=== PATIENT | female | born 1940 | race Caucasian/White ===

== ENCOUNTER 2021-01-19 11:15 | Outpatient (CLI) | payer BC, SELFPAY ==
--- NOTE | ~2021-01-19 | XR_ITS ---
XR elbow LT min 3V DATE: 01/19/2021 11:50 INDICATION: Left elbow pain TECHNIQUE: 4 views COMPARISON: None FINDINGS: There is elevation of the anterior and posterior fat pads consistent with elbow joint effus ion. No fracture, dislocation, periosteal reaction or bone destruction is evident. IMPRESSION: Elbow joint effusion; no fracture or dislocation detected Reviewed, dictated and finalized at location B. [employer]
--- NOTE | ~2021-01-19 | XR_ITS ---
XR wrist LT min 3V DATE: 01/19/2021 11:50 INDICATION: Acute onset of left wrist pain TECHNIQUE: 4 views COMPARISON: None FINDINGS: Mild chondrocalcinosis of the triangular cartilage. Diffuse osteopenia. Mild osteoarthritic change at the first carpometacarpal joint. Mild widening of the scapholunate joint. No fracture, dislocation, periosteal reaction or bone destruction. IMPRESSION: Osteopenia Mild osteoarthritis Reviewed, dictated and finalized at location B. EY MANAGER
== END 2021-01-19 11:16 | disposition home or self-care (01) ==
PROVIDERS: PCP Family Medicine; Visit Provider Family Medicine
DX: M85.832 Other specified disorders of bone density and structure, left forearm (principal); M25.422 Effusion, left elbow
CPT/HCPCS: 73080; 73110

== ENCOUNTER 2021-02-17 10:38 | Emergency (ER) | payer BC, SELFPAY ==
--- NOTE | ~2021-02-17 | XR_ITS ---
EXAMINATION: XR knee RT 3V DATE: 02/17/2021 11:31 INDICATION: Right knee pain. TECHNIQUE: 3 views of right knee were obtained. COMPARISON: None. FINDINGS: Bone alignment is normal. No fracture. There is mild osteoarthritis of lateral compartment characterized by a tiny marginal osteophyte. There is a small knee joint effusion. IMPRESSION: 1. Mild right knee osteoarthritis. 2. Small right knee joint effusion. Reviewed, dictated and finalized at location A.
[2021-02-17 10:46] VITALS: BP 139/99; PULSE 77; RESP 20; TEMP 36.3; O2SAT 98
--- NOTE | 2021-02-17 12:04 | ED.LOWEXIN ---
HPI - Extremity Injury (Lower) General Chief Complaint: Extremity Injury, Lower Stated Complaint: Right knee pain- fall yesterday Time Seen by Provider: 02/17/21 10:51 Source: patient Mode of arrival: ambulatory Limitations: no limitations History of Present Illness HPI Narrative: Patient is a 80-year-old female who presents with complaints of right knee pain. Patient reports slipped and fell on garage floor yesterday hitting me. She reports pain with ambulation, tenderness and mild swelling. She denies any other injuries. Patient is on a blood thinner. She denies hitting head or LOC. She denies all other complaints at this time MD complaint: knee injury and fall Related Data Allergies Allergy/AdvReac Type Severity Reaction Status Date / Time No Known Allergies Allergy Verified 02/17/21 10:53 Review of Systems Review of Systems: Narrative: CONSTITUTIONAL: Denies fever, chills, or sweats. EYES: Denies visual changes, redness, or discharge. ENT: Denies rhinorrhea, congestion, sore throat, or otalgia. CARDIOVASCULAR: Denies chest pain, palpitations, or edema. RESPIRATORY: Denies cough or dyspnea. GASTROINTESTINAL: Denies abdominal pain, nausea, vomiting, or diarrhea. GENITOURINARY: Denies dysuria or hematuria. SKIN: Denies rash or itching. MUSCULOSKELETAL: Right knee pain NEUROLOGIC: Denies headache, numbness, dizziness, or weakness. PSYCHIATRIC: Denies anxiety or depression. [facility] Past Medical History Medical History A-fib Benign essential hypertension with target blood pressure below 140/90 Borderline diabetes Current use of meterman anticoagulation Mixed hyperlipidemia Scapholunate dissociation of left wrist Family History Family History Sibling Hypertension Social History Social History Social History: Smoking status: Light tobacco smoker Second hand tobacco smoke exposure: No Alcohol intake: never Substance use: never Substance use type: does not use Gender identity (if verbalized by the patient): Female Comments At the time of signature, I have reviewed and agree with nursing past medical, surgical, social, and family history unless otherwise noted. Please see nursing chart for further information. There is no relevant family history pertinent to the presenting complaint. Exam Narrative: Exam Narrative: GENERAL: Well-appearing, well-nourished, and in no acute distress. HEAD: Normocephalic, atraumatic. EYES: EOMI. No redness or drainage. Conjunctiva are normal. ENT: Mucous membranes pink and moist. CHEST: No respiratory distress. Clear to auscultation. HEART: Regular rate and rhythm. EXTREMITIES: Tenderness with palpation to right lateral knee, mild edema, no ecchymosis. Distal sensation intact SKIN: Warm, dry, no rash. NEURO: No focal deficits. Alert and oriented x3. PSYCH: Normal affect. No signs of depression or anxiety. Course Vital Signs Vital signs: Vital Signs Temperature 36.3 C L 02/17/21 10:46 Pulse Rate 77 02/17/21 10:46 Respiratory Rate 20 02/17/21 10:46 Blood Pressure 139/99 H 02/17/21 10:46 Pulse Oximetry 98 02/17/21 10:46 Temperature 36.3 C L 02/17/21 10:46 Pulse Rate 77 02/17/21 10:46 Respiratory Rate 20 02/17/21 10:46 Blood Pressure 139/99 H 02/17/21 10:46 Pulse Oximetry 98 02/17/21 10:46 Reviewed-patient is informed that they may have pre-hypertension or hypertension based on a blood pressure reading. I recommend the patient call the primary care provider listed on their discharge instructions or a physician of their choice this week to arrange follow-up for further evaluation of possible pre-hypertension or hypertension. MDM - Extremity Injury (Lower) MDM Narrative Medical decision making narrative: Patient x-ray shows no fracture or dislocation. Signs of o
[2021-02-17 12:20] VITALS: BP 140/96; PULSE 78; RESP 20; O2SAT 99
== END 2021-02-17 12:22 | disposition home or self-care (01) ==
PROVIDERS: Emergency Provider Nurse Practitioner; PCP Family Medicine
DX: M25.561 Pain in right knee (principal); I48.91 Unspecified atrial fibrillation; Z79.01 Long term (current) use of anticoagulants; I10 Essential (primary) hypertension; R73.03 Prediabetes; E78.2 Mixed hyperlipidemia; F17.200 Nicotine dependence, unspecified, uncomplicated; M17.11 Unilateral primary osteoarthritis, right knee; W01.0XXA Fall on same level from slipping, tripping and stumbling without subsequent striking against object, initial encounter
CPT/HCPCS: 73562; 99283

== ENCOUNTER 2022-12-14 16:52 | Outpatient (CLI) | payer BC, SELFPAY ==
[2022-12-14 17:19] LABS: Anion Gap 5 mmol/L (8-16); Blood Urea Nitrogen 19 mg/dL (7-17); Calcium 8.6 mg/dL (8.4-10.2); Carbon Dioxide 31 mmol/L (22-30); Chloride 105 mmol/L (98-107); Estimated Glomerular Filt Rate 48; Glucose 97 mg/dL (65-110); Potassium 3.9 mmol/L (3.4-5.0); Sodium 141 mmol/L (137-145)
== END 2022-12-14 16:53 | disposition home or self-care (01) ==
LOC: ANHLAB 16:52
PROVIDERS: PCP Family Medicine; Visit Provider Family Medicine
DX: I10 Essential (primary) hypertension (principal)
CPT/HCPCS: 36415; 80048

== ENCOUNTER 2023-01-24 12:58 | Emergency (ER) | payer BC, SELFPAY ==
--- NOTE | 2023-01-24 13:02 | PC.NURSE ---
1254 code blue over headed
--- NOTE | 2023-01-24 13:06 | PC.NURSE ---
Dr Sauceda attempting intubation at this time, resp at bedside.
--- NOTE | 2023-01-24 13:10 | PC.NURSE ---
Pt intubated w/ 06/12 tube, positive color change
--- NOTE | 2023-01-24 13:11 | PC.NURSE ---
Time of called at [address] Sauceda at bedside.
--- NOTE | 2023-01-24 13:25 | ED.GENADULT ---
HPI - General Adult General Chief complaint: Cardiac Arrest/CPR Stated complaint: CARDIAC ARREST Time Seen by Provider: 01/24/23 13:21 History of Present Illness HPI narrative: 82-year-old male presented to the emergency department by EMS in full arrest. Family is states that the patient had been doing well today. They went to check on the patient after she had been eating lunch and found her sitting in the chair and unresponsive. Family slid the patient from the chair to the floor and did start CPR and called EMS. Related Data Home Medications Medication Instructions Recorded Confirmed memantine 10 mg tablet (Namenda) 10 mg PO BID 08/23/22 12/14/22 Allergies Allergy/AdvReac Type Severity Reaction Status Date / Time No Known Allergies Allergy Verified 12/14/22 16:10 Review of Systems Review of Systems: ROS unobtainable: Yes unobtainable due to medical condition PMFSH Past Medical History Medical History A-fib Benign essential hypertension with target blood pressure below 140/90 Borderline diabetes Current use of [facility] anticoagulation Mixed hyperlipidemia Scapholunate dissociation of left wrist Family History Family History Sibling Hypertension Social History Social History (Updated 12/14/22 @ 16:11 by Jenny Tavarez) Social History: Smoking status: Former smoker Tobacco type: cigarettes Second hand tobacco smoke exposure: No Alcohol intake: never Substance use: never Substance use type: does not use Living arrangements: with family Occupation/Education: retired Gender identity (if verbalized by the patient): Female Sexual Orientation (if Verbalized by the Patient): Straight or Heterosexual Exam Narrative: APPEARANCE: Unresponsive HEAD: normocephalic, atraumatic. EYES: Peoples unreactive NOSE: Normal no drainage THROAT: Rodolfo airway in place patient was intubated upon arrival. NECK: Supple. No adenopathy, no masses. RESPIRATORY: Distant lung sounds CARDIOVASCULAR: Asystole ABDOMINAL: Soft, nontender, nondistended, normal bowel sounds MUSCULOSKELETAL: Moves all extremities. Strength/ROM intact, No edema, No calf tenderness. NEURO: Unresponsive with no intentional movement SKIN: Cyanotic Course Course Emergency Course: Family noticed the patient was unresponsive, started CPR and called 911. Upon arrival to the scene EMS found the patient unresponsive and pulseless. Patient patient did receive 4 rounds of epi. Patient was also cardioverted from a suspected pulseless V. tach. EMS was unsure if the patient recovered a pulse after that point but upon arrival to the emergency department patient was pulseless again. In the emergency department patient was intubated with a 7.5 tube as described in the procedure note. Patient received additional 3 rounds of epi and round of bicarb. Prior to giving the fourth round of epi patient was pulseless and using bedside ultrasound no cardiac activity was noted. Time of was declared at 13:11. Which is approximately 45 minutes of downtime. Patient's family getting and daughter were updated on the treatment that occurred and the patient's . Patient's primary care physician was also updated on the patient's arrest. Unknown if this was due to aspiration versus primary cardiac etiology. Procedures Intubation Intubation #1: Time out performed: Yes sedative: none Laryngoscope: fiber optic video scope Tube Size (cm): 7.5 Method of Intubation: orotracheal Number of Attempts: 3 Tube Secured Depth (cm): 25 Tube Secured Location: lips Tube Placement Confirmation: visualized tube passing through cords, equal breath sounds bilaterally, no breath sounds over epigastrium and confirmation by capnometry Patient Tolerated Procedure: well Intubation
--- NOTE | 2023-01-24 16:24 | PC.NURSE ---
Per Fabiana MCCORMICK, Radha w/ [facility] called at 1350 to make aware pt is not a candidate for organ donation.
== END 2023-01-24 16:24 | disposition expired ==
PROVIDERS: Emergency Provider Emergency Medicine; PCP Family Medicine
DX: I46.9 Cardiac arrest, cause unspecified (principal); I48.91 Unspecified atrial fibrillation; I10 Essential (primary) hypertension; R73.03 Prediabetes; E78.2 Mixed hyperlipidemia; Z87.891 Personal history of nicotine dependence; Z79.01 Long term (current) use of anticoagulants
CPT/HCPCS: 31500; 92950; 99285; J0171